=== PATIENT | female | born 1995 | race African-American/Black ===

== ENCOUNTER 2018-06-13 10:43 | Inpatient (IN) | payer MEDICAID ==
[~2018-06-13] VITALS: Ht 160 cm; Wt 93.4 kg
[2018-06-13 10:54] VITALS: Ht 160 cm; Wt 93.4 kg
[2018-06-13] MEDS: LACTATED RINGER'S 1,000 ML IV SCH ×4 (12:25→23:54)
[2018-06-13] MEDS ORDERED: MAGNESIUM SULFATE 4 GM/100 ML 100 ML ONE (14:09)
[2018-06-13] MEDS ORDERED: CARBOPROST 250 MCG INJ IM PRN ×2 (14:30→19:30)
[2018-06-13] MEDS ORDERED: LABETALOL HCL 20MG INJ IV ONE (14:30)
[2018-06-13] MEDS ORDERED: MAGNESIUM SULFATE 2 GM/50 ML 50 ML IVPB ONE (14:30)
[2018-06-13] MEDS ORDERED: MISOPROSTOL 200 MCG TAB PR PRN ×2 (14:30→19:30)
[2018-06-13] MEDS ORDERED: METHYLERGONOVINE 0.2 MG INJ IM PRN (14:30)
[2018-06-13] MEDS ORDERED: MAGNESIUM SULFATE 4 GM/100 ML 100 ML IVPB ONE (14:30)
[2018-06-13] MEDS ORDERED: OXYTOCIN 30 UNITS/LR 500 ML IV PRN ×2 (14:30→19:30)
[2018-06-13] MEDS ORDERED: MAGNESIUM SULFATE 20 GM/500 ML 500 ML IV SCH (14:39)
[2018-06-13] MEDS ORDERED: CEFAZOLIN 2 GM/50 ML (PMX) 50 ML IVPB SCH ×2 (17:00→19:30)
--- NOTE | 2018-06-13 17:13 | PREAC ---
Date/Time of Note Date/Time of Note DATE: 06/13/18 TIME: 17:12 Anesthesia Eval and Record Evaluation Time Pre-Procedure Interview DATE: 06/13/18 TIME: 17:12 Age 23 Sex female NPO: 8 hrs Preoperative diagnosis iup at 38 weeks Planned procedure repeat c section Past Medical History Past Medical History: Includes Cardio: HTN : PIH Surgery & Anesthesia Issues No known issue Meds Anticoagulation: No Beta Carissa within 24 hr: No Reason Beta Carissa not given: Pt. not on B-Carissa Current Medications Lactated Ringer's 1,000 ml @ 250 mls/hr Q4H IV Last administered on 06/13/18at 12:25; Admin Dose 250 MLS/HR; Start 06/13/18 at 11:40 Lactated Ringer's 1,000 ml @ 125 mls/hr Q8H IV Last administered on 06/13/18at 14:21; Admin Dose 125 MLS/HR; Start 06/13/18 at 14:04 Oxytocin/Lactated Ringer's 500 ml @ 0 mls/hr ONCE PRN IV .VAGINAL BLEEDING; Start 06/13/18 at 14:30 Methylergonovine Maleate (Methergine) 0.2 mg ONCE PRN IM .VAGINAL BLEEDING; Start 06/13/18 at 14:30 Carboprost Tromethamine (Hemabate) 250 mcg ONCE PRN IM .VAGINAL BLEEDING; Start 06/13/18 at 14:30 Misoprostol (Cytotec) 1,[address] .VAGINAL BLEEDING; Start 06/13/18 at 14:30 Magnesium Sulfate 100 ml @ 25 mls/hr ONCE ONCE IVPB Last administered on 06/13/18at 14:23; Admin Dose 25 MLS/HR; Start 06/13/18 at 14:30; Stop 06/13/18 at 18 :29 Magnesium Sulfate 500 ml @ 50 mls/hr Q10H IV Last administered on 06/13/18at 14:50; Admin Dose 50 MLS/HR; Start 06/13/18 at 14:39 Cefazolin Sodium/ Dextrose 50 ml @ 100 mls/hr ONCE IVPB ; Start 06/13/18 at 17:00; Stop 06/13/18 at 23:00 Meds reviewed: Yes Allergies Uncoded Allergies: EPIDURAL (Allergy, Intermediate, 06/13/18) RASH Allergies Reviewed: Yes Labs/Studies Labs Reviewed: Reviewed by anesthesiologist Result Diagram: 06/13/18 1334 06/13/18 1334 Laboratory Tests 06/13/18 13:34 Blood Bank Test 06/13/18 13:34 Antibody Screen NEGATIVE Blood Type O POSITIVE Rh Immune Globulin Candidate NO test: Positive Pre-procedure Exam Airway: Adequate mouth opening, Adequate thyromental dist Mallampati: Mallampati I Teeth: Normal Lung: Normal Heart: Normal ASA Physical Status ASA physical status: 2 Emergency: None Planned Anesthetic Neuraxial: Spinal Planned Pain Management Parenteral pain med Pre-operative Attestations Prior to commencing anesthesia and surgery, the patient was re-evaluated, there was verification of: *The patient's identity *The results of appropriate recent lab work and preoperative vital signs *The above evaluation not changing prior to induction *Anesthetic plan, risk benefits, alternative and complications discussed with patient/family; questions answered; patient/family understands, accepts and wishes to proceed. KRISTIN GUERRERO Jun 13, 2018 17:13
[2018-06-13] MEDS ORDERED: FENTAnyl 50 MCG/ML VIAL ONE (17:14)
[2018-06-13] MEDS ORDERED: morphine SULFATE/PF (10 MG/10 ML) INJ ONE (17:14)
[2018-06-13 17:19] VITALS: BP 137/88; PULSE 93; RESP 20
--- NOTE | 2018-06-13 18:16 | PREOPHP ---
DATE OF ADMISSION: 06/13/2018 HISTORY OF PRESENT ILLNESS: Ms. Starr Muhammad is a 23-year-old 2, para 1, EDC of 06/26/2018 , intrauterine at 38 weeks' gestational age, presented to triage complaining of headaches w ith elevated blood pressures of 160s over 90s. She was started on magnesium sulfate for seizure prop hylaxis and was also scheduled for elective repeat delivery secondary to preeclampsia with s evere features. Currently, her vital signs are stable. Her care took place with Dr. Phan . PAST MEDICAL HISTORY: None. MEDICATIONS: vitamins. PAST SURGICAL HISTORY: x1 previous . OBSTETRIC HISTORY: x1 previous . GYNECOLOGIC HISTORY: 14, regular 3 to 4 days. Denies any sexually transmitted disease. Sexually ac tive with 1 partner. SOCIAL HISTORY: Denies any smoking, drugs or alcohol. FAMILY HISTORY: None. REVIEW OF SYSTEMS: All within normal except history of present illness. PHYSICAL EXAMINATION: HEENT: Within normal. LUNGS: CTA bilateral. CARDIOVASCULAR: S1, S2. Regular rate, rhythm. ABDOMEN: Gravid, nontender. Negative CVA bilateral. EXTREMITIES: Negative edema. No calf tenderness. PELVIC: Vaginal exam is deferred. heart tracing category 1. Tocometer: Irregular contractio ns. ASSESSMENT: 1. A 23-year-old 2, para 1, intrauterine at 38 weeks' gestational age. 2. Previous section x1. 3. Preeclampsia with severe features. 4. Desires elective repeat delivery. 5. Declined vaginal after . PLAN: Consent for repeat delivery. Risks, benefits and alternatives were explained. All q uestions were answered. Dictated By: GERRY RAGALND/ERICKSON Conf#: [id number] DID#: [id number]
[2018-06-13] MEDS ORDERED: DEXAMETHASONE 4 MG/ML 1 ML INJ ONE (18:19)
[2018-06-13] MEDS ORDERED: ONDANSETRON 4 MG INJ ONE (18:21)
[2018-06-13] MEDS ORDERED: OXYTOCIN 30 UNITS/LR 500 ML IV SCH (19:10)
--- NOTE | 2018-06-13 19:10 | OPPN ---
Date/Time of Note Date/Time of Note DATE: 06/13/18 TIME: 19:08 Operative Report Planned Procedure Procedure date Jun 13, 2018 Procedure(s) repeat low transverse CD Performed by see signature line Visual Manager: YAMILKA MCLAIN M.D. 2nd Visual Manager none Anesthesiologist: KRISTIN GUERRERO Pre-procedure diagnosis 1. A 23-year-old 2, para 1, intrauterine at 38 weeks' gestational age. 2. Previous section x1. 3. Preeclampsia with severe features. 4. Desires elective repeat delivery. 5. Declined vaginal after . [id number] Anesthesia Type: Mutdx8x spinal Post-Procedure Post-procedure diagnosis Same Findings A viable female 8/9 weight 6lb 1 oz, normal uterus, tubes and ovaries Estimated Blood Loss: 500 - 600 mls Specimen(s) none Grafts/Implant(s) none Complication(s) none GERRY RIGGS MD Jun 13, 2018 19:10
[2018-06-13] MEDS ORDERED: LANOLIN HPA 1 PKT TOP PRN (19:30)
[2018-06-13] MEDS ORDERED: LABETALOL HCL 20MG INJ IV PRN (19:30)
[2018-06-13] MEDS: OXYTOCIN 30 UNITS/LR 500 ML IV SCH ×2 (19:30→23:30)
[2018-06-13] MEDS ORDERED: CA GLUCONATE (GM) 10% 10ML INJ IV PRN (19:30)
[2018-06-13] MEDS ORDERED: NACL 0.9% 3 ML SYG IV SCH ×2 (19:30)
[2018-06-13] MEDS ORDERED: OXYCODONE/ACETAMINOPHEN (5/325) TAB PO PRN (19:30)
--- NOTE | 2018-06-13 19:47 | PAC ---
Date/Time of Note Date/Time of Note DATE: 06/13/18 TIME: 19:47 Post-Anesthesia Notes Post-Anesthesia Note Last documented vital signs temp 98.2 bp 112/78 O2 sat 98% Activity: WNL Respiratory function: WNL Cardiovascular function: WNL Mental status: Baseline Pain reasonably controlled: Yes Hydration appropriate: Yes Nausea/Vomiting absent: Yes KRISTIN GUERRERO Jun 13, 2018 19:47
[2018-06-13] MEDS ORDERED: NALOXONE (0.4 MG/ML) INJ IV PRN (22:00)
[2018-06-13] MEDS ORDERED: HYDROmorphONE 0.5 MG/0.5 ML SYG IV PRN ×2 (22:00)
[2018-06-13] MEDS ORDERED: ONDANSETRON 4 MG INJ IV PRN (22:00)
[2018-06-13] MEDS ORDERED: ZOLPIDEM 5 MG TAB PO PRN (22:00)
[2018-06-13 22:10] VITALS: BP 125/76; PULSE 81; RESP 18
[2018-06-13] MEDS: DIPHENHYDRAMINE 50 MG INJ IV PRN (22:36)
[2018-06-13] MEDS: CEFAZOLIN 2 GM/50 ML (PMX) 50 ML IVPB SCH (22:59)
[2018-06-13 23:10] VITALS: BP 134/84; PULSE 82; RESP 19
[2018-06-14] VITALS (16 sets, daily range): BP systolic 84–140; BP diastolic 54–94; PULSE 78–91; RESP 18–20
[2018-06-14] MEDS: MAGNESIUM SULFATE 20 GM/500 ML 500 ML IV SCH ×3 (02:32→12:37)
[2018-06-14] MEDS: OXYTOCIN 30 UNITS/LR 500 ML IV SCH ×3 (03:30→11:30)
[2018-06-14] MEDS: DIPHENHYDRAMINE 50 MG INJ IV PRN (05:12)
[2018-06-14] MEDS: LACTATED RINGER'S 1,000 ML IV SCH (05:29)
[2018-06-14] MEDS: IBUPROFEN 600 MG TAB PO SCH ×5 (06:00→23:33)
[2018-06-14] MEDS: KETOROLAC 30 MG INJ IV PRN ×2 (06:17→13:25)
[2018-06-14] MEDS: CEFAZOLIN 2 GM/50 ML (PMX) 50 ML IVPB SCH ×2 (06:44→14:28)
--- NOTE | 2018-06-14 08:37 | OPPN ---
Date/Time of Note Date/Time of Note DATE: 06/14/18 TIME: 08:36 Anesthesia Follow up Anesthesia Follow up Last documented vital signs Vital Signs Date Temp Pulse Resp B/P (MAP) Pulse Ox O2 O2 Flow FiO2 Time Delivery Rate 06/14/18 98.6 87 19 138/79 97 Room Air 06:00 (98) 06/14/18 98.7 04:00 Respiratory function: WNL Cardiovascular function: WNL Comments SATISFACTORY PAIN MANAGEMENT FROM [facility]. NO COMPLICATIONS NOTED KRISTIN GUERRERO Jun 14, 2018 08:37
--- NOTE | 2018-06-14 08:52 | QN ---
Documentation Comment progress note pod 1 patient seen and evaluated no complaints vs stable afebrile ab dressing clean/dry no distention nt extremity no edema no calf tenderness a/ sp cd pod 1 currently on mg p/ discontinue mg 24 hrs pp strict preeclamptic precaution encourage ambulation f/u labs GERRY RIGGS MD Jun 14, 2018 08:52
--- NOTE | 2018-06-14 14:22 | OPR ---
DATE OF OPERATION: 06/13/2018 PRIMARY DIAGNOSES: 1. Intrauterine at 38 weeks' gestational age. 2. Previous section x1. 3. Preeclampsia with severe features. 4. Desires elective repeat delivery. 5. Declined vaginal after . POSTOPERATIVE DIAGNOSES: 1. Intrauterine at 38 weeks' gestational age. 2. Previous section x1. 3. Preeclampsia with severe features. 4. Desires elective repeat delivery. 5. Declined vaginal after . PROCEDURE: Repeat low transverse delivery. SURGEON: Nicholas Vargas MD. ORDER MAKE UP CLERK: Dr. Linton ANESTHESIA: Spinal. COMPLICATIONS: None. ESTIMATED BLOOD LOSS: 500 mL. FINDINGS: A viable female, 8 and 9 respectively at one and five minutes, weight 6 pounds 1 oun ce. Normal uterus, tubes and ovaries. DESCRIPTION OF PROCEDURE: After explaining the risks, benefits and alternatives to the patient, and consent signed in the chart, the patient was taken to the operating room where spinal anesthesia was found to be adequate. She was then prepared and draped in normal sterile fashion in dorsal position with a leftward tilt. A Pfannenstiel skin incision was then made with a scalpel and carried to the u nderlying fascia. The fascia was incised in the midline and the incision was extended laterally with Church scissors. The superior aspect of the fascial incision was grasped with Argelia clamps, elevated , and the underlying rectus muscles dissected off bluntly. Attention was then turned to the inferior aspect of the incision, which in similar fashion was grasped, tented up with Argelia clamps, and the rectus muscles dissected off bluntly. The rectus muscles were in the midline, peritoneum i dentified, tented up, entered sharply with Metzenbaum scissors. This incision was extended superiorl y and inferiorly with good visualization of bladder. The bladder blade was then inserted, and the ve sicouterine peritoneum identified, grasped with pickups, and sharply entered with Metzenbaum scissors . This incision was extended laterally and a bladder flap created digitally. The bladder blade was then reinserted and the lower segment incised in a transverse fashion with a scalpel. The uterine in cision was extended laterally. The bladder blade was removed, and the infant's head delivered atraum atically. The nose and mouth were suctioned and cord clamped and cut. The infant was handed off to waiting tool design engineer. The placenta was then removed. The uterus was exteriorized and cleared of all clots and debris. The uterine incision was repaired with 1-0 chromic in a running locked fashion. A second layer of the same suture was used for imbrication, obtaining hemostasis. The uterus was ret urned to the abdomen. The gutters were cleared of all clots. The peritoneum and rectus abdominis mu scles were reapproximated with 3-0 Vicryl in an interrupted fashion. The fascia was reapproximated w ith 0 Vicryl in a running fashion. The skin was closed with absorbable sidra. The patient tolerat ed the procedure well. Sponge, lap and needle counts were correct. The patient will continue on mag nesium sulfate for 24 hours for seizure prophylaxis. Dictated By: NICHOLAS RAGLAND/ERICKSON Conf#: [id number] DID#: [id number]
[2018-06-14] MEDS: OXYCODONE/ACETAMINOPHEN (5/325) TAB PO PRN (22:05)
[2018-06-15] MEDS: OXYCODONE/ACETAMINOPHEN (5/325) TAB PO PRN ×4 (02:44→20:15)
[2018-06-15 03:30] VITALS: BP 129/79; PULSE 75; RESP 18
[2018-06-15] MEDS: IBUPROFEN 600 MG TAB PO SCH ×3 (05:34→17:57)
[2018-06-15 08:00] VITALS: BP 121/73; PULSE 76; RESP 18
--- NOTE | 2018-06-15 08:17 | QN ---
Documentation Comment progress note pod 2 patient seen and evaluated no complaints vsstable afebrile ab soft nt dressing clean/dry extremity no edema no calf tenderness a/ sp cd pod 2 stable afebrile p/ encourage ambulation remove dressing today GERRY RIGGS MD Jun 15, 2018 08:17
[2018-06-15 16:14] VITALS: BP 124/78; PULSE 80; RESP 18
[2018-06-15 20:15] VITALS: BP 126/82; PULSE 85; RESP 18
[2018-06-16] MEDS: IBUPROFEN 600 MG TAB PO SCH ×3 (00:47→11:39)
[2018-06-16 04:00] VITALS: BP 137/79; PULSE 68; RESP 18
[2018-06-16 07:45] VITALS: BP 129/82; PULSE 87; RESP 16
[2018-06-16] MEDS: OXYCODONE/ACETAMINOPHEN (5/325) TAB PO PRN (09:09)
--- NOTE | 2018-06-16 15:23 | DS ---
Date/Time of Note Date/Time of Note DATE: 06/16/18 TIME: 15:22 Obstetrical Discharge Record Final Diagnosis Final Diagnosis: Term delivered Section Section: Repeat Complications Augmentation: No Induction: No Rupture of Membranes: No Condition on Discharge Physical Assessment Last Vitals: VSS afebrile Voiding: Yes Breast: Soft, non-tender Fundus: Firm Abdomen and Incision: soft wound dry Episiotomy: n/a Calf Tenderness: No Patient Condition: Stable BETHANY HAYWARD MD Jun 16, 2018 15:23
--- NOTE | 2018-06-16 15:25 | PD.PPDC ---
DRUG SAFETY ASSISTANT Discharge Instruction Diagnosis Phegn6Lg Final Diagnosis: Cpegn3w s/p R C/S Condition Akmet9Eq Patient Condition: Gondz9i Stable Diet Wiqcf4Kf Diet: Sybgm9a Resume Regular Diet Activity/Restrictions Xnyxe2Bl Activity: Htopd3l May Shower Inmzg2Fp Restrictions: Qopko1b No Exercising No Lifting Minimize Stair-climbing No Sexual Activity Nothing in the Vagina No Woodfin No Tampons, douche Wound/Drain Care Instructions [id number] Wound/Drain Care Instructions: Bpetj9w Wash with soap and water Keep clean and dry Follow-up Follow-up with Physician: 2, Week/Weeks Return to clinic for Xcips3Ov EVENT SPECIALIST FOOD DEMONSTRATOR Instructions: Juifi7e Fever greater than 101 Chills Worsening abdominal pain Excessive Vaginal Bleeding More than 2 pads per hour Unable to tolerate diet [id number] OB Instructions: Luoyp5o Breast Tenderness Depression Blurried Vision Headache Xceoc5Hq Surgical Instructions: Mjokw4a Incisional Drainage Incisional Redness BETHANY HAYWRAD MD Jun 16, 2018 15:25
--- NOTE | 2018-06-17 16:57 | DELSUM ---
Delivery Summary A-C Datetime Report Generated by CPN: 06/17/2018 16:57 DELIVERY PERSONNEL Senior Marketing Associate: [place], May MATERNAL INFORMATION Delivery Anesthesia: Spinal Medications in Delivery: SEE ANESTHESIA RECORD Delivery QBL (ml): 924 Placenta Cultured: No Maternal Complications: Other Other Maternal Complications: PIH LABOR SUMMARY EDC: 06/26/2018 00:00 No. Babies in Womb: 1 Attempted: No Labor Anesthesia: None LABOR INFORMATION Reason for Induction: Not Applicable Oxytocin: N/A Group B Beta Strep: Negative Antibiotics # of Doses: 1 Steroids Given: None Reason Steroids Not Administered: Not Applicable MEMBRANES Membranes Rupture Method: Artificial Rupture of Membranes: 06/13/2018 18:36 Length of Rupture (hr): 0.00 Amniotic Fluid Color: Clear Amniotic Fluid Amount: Moderate Amniotic Fluid Odor: None STAGES OF LABOR Stage 3 hr: 0 Stage 3 min: 1 CSECTION DELIVERY Primary Indication: Repeat Elective Other Primary Indication: PIH Secondary Indication: N/A CSection Urgency: Elective CSection Incidence: Repeat Labor: No Labor Elective: N/A CSection Incision: Lower Uterine Transverse BABY A INFORMATION Delivery Date/Time: 06/13/2018 18:36 Method of Delivery: Born in Route : No : N/A Forceps: N/A Vacuum Extraction: N/A Shoulder Dystocia : N/A SHOULDER DYSTOCIA BABY A Delivery Date/Time: 06/13/2018 18:36 PRESENTATION/POSITION BABY A Presentation: Cephalic Cephalic Presentation: Vertex Vertex Position: Left Occipital Anterior Breech Presentation: N/A PLACENTA INFORMATION BABY A Placenta Delivery Time : 06/13/2018 18:37 Placenta Method of Delivery: Manual Removal Placenta Status: Delivered SCORES BABY A Heart Rate 1 min: >100 bpm Resp Effort 1 min: Good Cry Reflex Irritability 1 min: Cough/Sneeze/Pulls Away Muscle Tone 1 min: Active Motion Color 1 min: Blue/Pale Resuscitation Effort 1 min: Tactile Stimulation SCORE 1 MIN: 8 Heart Rate 5 min: >100 bpm Resp Effort 5 min: Good Cry Reflex Irritability 5 min: Cough/Sneeze/Pulls Away Muscle Tone 5 min: Active Motion Color 5 min: Body [place], Extremit Blue Resuscitation Effort 5 min: Tactile Stimulation SCORE 5 MIN: 9 INFORMATION BABY A Gestational Age at Delivery: 38.1 Gestational Status: Early Term- 37- 38.6 Weeks Infant Outcome : Liveborn Infant Condition : Stable Infant Sex: Female IDENTIFICATION/MEDS BABY A ID Band Number: [id number] ID Band Location: Right Leg; Left Arm Sensor Applied: Yes Sensor Number: [id number] Sensor Location : Cord Clamp Vitamin K Given : Not Given Erythromycin Given: Not Given WEIGHT/LENGTH BABY A Infant Birthweight (gm): 2755 Weight (lb): 6 Infant Weight (oz): 1 Infant Length (in): 19.00 Length (cm): 48.26 CORD INFORMATION BABY A No. Cord Vessels: 3 Nuchal Cord : N/A Cord Blood Taken: Yes Suction: Mouth; Nose ASSESSMENT BABY A Infant Complications: Other Physical Findings at Delivery: Other Infant Respirations: Appears Normal Packaging Inspector/ALS Called : No Care By: KIM/EUNICE Transferred To: Remains with Mother
== END 2018-06-16 16:56 | disposition home or self-care (01) | DRG 788 ==
LOC: L-D 10:43 → OBT 10:43 → L-D 13:20 → OBT 13:27 → L-D 14:03 → PP1 22:06
PROVIDERS: ADMIT Obstetrics & Gynecology; ATTEND Obstetrics & Gynecology
PROC: 10D00Z1 Extraction of Products of Conception, Low, Open Approach (ICD-10-PCS; principal; 2018-06-13 17:00)
DX: O65.5 Obstructed labor due to abnormality of maternal pelvic organs (principal); O34.211 Maternal care for low transverse scar from previous cesarean delivery; O14.14 Severe pre-eclampsia complicating childbirth; Z3A.38 38 weeks gestation of pregnancy; Z37.0 Single live birth
CPT/HCPCS: 76815; 76818; 80053; 81003; 83735; 84560; 85025; 85610; 85730; 86592; 86850; 86900; 86901; 87340; 99464; G0463; J0690; J1100; J1200; J1885; J2274; J2405; J2590; J3010; J3475; J7120